=== PATIENT | male | born 1970 | race African-American/Black ===

== ENCOUNTER 2017-11-07 08:33 | Day surgery (SDC) | payer OTHER ==
[2017-10-02 12:02] VITALS: BMI 21.7
[2017-11-07] MEDS ORDERED: BENZOIN/ALOE VERA/STORAX/TOLU 58 ML BOTTLE ONE ×2 (11:00→15:02)
[2017-11-07] MEDS ORDERED: PROPOFOL 20 ML ONE ×2 (12:23→14:10)
[2017-11-07] MEDS ORDERED: ONDANSETRON 4 MG/2 ML VIAL ONE ×3 (12:24→15:50)
[2017-11-07] MEDS ORDERED: LIDOCAINE HCL/PF 2% SDV 5ML VIAL ONE ×2 (12:24→13:50)
[2017-11-07] MEDS ORDERED: DEXAMETHASONE SOD PHOSPHATE 4 MG/1 ML VIAL ONE ×2 (12:24→13:49)
[2017-11-07] MEDS ORDERED: SODIUM CHLORIDE 0.9% P/F 10 ML VIAL IJ ONE (12:24)
[2017-11-07] MEDS ORDERED: ceFAZolin SODIUM 1 GM VIAL ONE (12:24)
[2017-11-07] MEDS ORDERED: DEXAMETHASONE SOD PHOSPHATE/PF 10 MG/ML SDV ONE (12:46)
[2017-11-07] MEDS ORDERED: BUPIVACAINE HCL/PF (5 MG/ML) 30 ML VIAL IJ ONE (12:47)
[2017-11-07] MEDS ORDERED: MIDAZOLAM HCL 2 MG/2 ML SINGLE DOSE VIAL ONE ×2 (12:47→13:48)
[2017-11-07] MEDS ORDERED: oxyCODONE HCL 5 MG TABLET PO PRN ×2 (13:02)
[2017-11-07] MEDS ORDERED: ONDANSETRON 4 MG/2 ML VIAL IVPUSH PRN (13:02)
[2017-11-07] MEDS ORDERED: ACETAMINOPHEN 325 MG TABLET (FP) PO SCH (13:15)
[2017-11-07] MEDS ORDERED: LACTATED RINGERS SOLUTION 1,000 ML IV SCH (13:15)
[2017-11-07] MEDS ORDERED: ePHEDrine SULFATE 50 MG/1 ML AMPULE ONE ×2 (14:12→14:26)
[2017-11-07] MEDS ORDERED: KETOROLAC TROMETHAMINE 30 MG/1 ML VIAL ONE (14:22)
[2017-11-07] MEDS ORDERED: PHENYLEPHRINE HCL 10 MG/1 ML SINGLE DOSE VIAL ONE (14:33)
--- NOTE | 2017-11-07 15:19 | OP ---
Operative Note - Note: Operative Date: 11/07/17 Pre-Operative Diagnosis: Impingement R shoulder with rotator cuff tear Operation: Repair Rotator cuff with Neer decompression Findings: 1 cmm tear and tight impingement Surgeon: Geo Bella Mechanical Test Technician: Dusty Bella (Co Surgeon) Anesthesia: General Estimated Blood Loss (mls): 30 Operative Report Dictated: Yes
--- NOTE | 2017-11-07 15:32 | OP ---
Operative Note - Note: Operative Date: 11/07/17 Pre-Operative Diagnosis: 1. Right shoulder impingement syndrome. 2. Right rotator cuff tear Operation: Right shoulder open: 1. Neer decompression (acromioplasty, sub- acromial decompression, CA ligament release). 2. Asmita procedure (distal claviculectomy). 3. Rotator cuff repair Post-Operative Diagnosis: Same as Pre-op Surgeon: Geo Bella Air Grinder: Dusty Bella (Co-Surgeon) Anesthesiologist/CERTIFICATION AND SELECTION SPECIALIST: Nolan Altamirano Anesthesia: General, MAC (Interscalene block) Estimated Blood Loss (mls): 25 Operative Report Dictated: Yes
[2017-11-07] MEDS ORDERED: oxyCODONE HCL 5 MG TABLET ONE (17:00)
[2017-11-07 17:19] VITALS: TEMP 97.6
[2017-11-07 18:43] VITALS: BP 106/70; PULSE 86
--- NOTE | 2017-11-08 00:56 | OP ---
DATE OF OPERATION: 11/07/2017 SURGEON: Geo Bella M.D. CO-SURGEON: Dusty Bella M.D. PREOPERATIVE DIAGNOSIS: Right impingement syndrome with rotator cuff tear. POSTOPERATIVE DIAGNOSIS: Right impingement syndrome with rotator cuff tear. OPERATION PERFORMED: 1. Excision claviculectomy ([place]). 2. Transection acromioclavicular ligament. 3. Undercutting acromioplasty. 4. Repair of rotator cuff. ANESTHESIA: Scalene block with general anesthesia. ANTIBIOTICS GIVEN: 2 g Kefzol, 1 g vancomycin. OPERATING PERFORMED: 1. Lateral excision claviculectomy ([place]). 2. Transection of coracoacromial ligament. 3. Acromioplasty. 4. Repair of rotator cuff. ANESTHESIA: Scalene block with general conscious sedation. ANTIBIOTICS GIVEN: 2 g Kefzol, 1 g vancomycin. PROCEDURE: Patient correctly identified. Brought in operating room. Timeout was called. Imaging was available for intraoperative evaluation. Right shoulder was prepped in routine manner with Betadine scrub solution, wiped with alcohol, Duraprep applied, both the planes pressed under the inferior pole of the scapula to elevate the scapula appropriately. In the lines of Cali from the tip of the tip of the coracoid to the tip of the acromion an incision was made. The tissues were lifted and plane developed into subcutaneous fat to the posterior border of the clavicle just proximal to the AC joint. The deltoid was split at the level of the AC joint for about 3 cm. A Sue was placed under the anterior aspect of the clavicle, and an excision of the clavicle performed. This is 1 cm beveled inwards. The soft tissues were maintained for closure. At that point then the coracoacromial ligament was dissected out by the deltoid fibers. The AC ligament clearly identified, this was transected using a 15 blade and Metzenbaum scissors finished the decompression both cranially and caudally in relation to the AC ligament, freeing the ligament and the undersurface completely. A Baig elevator was placed on the undersurface of the acromion, depressing the humeral head off the acromion. It must be noted prior to this one could not even put a finger into the subacromial space, it was so tight. The acromion was then treated with an appropriate undercutting acromioplasty using a small oscillating saw and an osteotome resected out the remaining elements of bone. This opened up the space completely. The rotator cuff was then inspected. It must be noted the patient was placed with the head on the side on an arm board so that the shoulder could be extended fully and the entire rotator cuff explored with the shoulder in full extension and full flexion, with internal-external rotation one could visualize completely the entire confines of the appropriate rotator cuff. A suture was placed into the small area. There was a defect tear noted. The margins were excised with a 15 blade and to achieve vascularized soft tissue healing to vascularized soft tissue healing. Tight sealed suture achieved. The wounds were thoroughly lavaged. The shoulder joint was completely decompressed and movement was free. Closure deltoid to AC soft tissue approximated with 1 Vicryl, subcutaneous 3-0 Vicryl, skin 3-0 Monocryl with Steri-Strips. No complications. MD LEYLA Curry/[id number]
== END 2017-11-07 18:25 | disposition home or self-care (01) ==
LOC: FASU 08:33
PROVIDERS: ATTEND Orthopaedic Surgery Orthopaedic Surgery of the Spine
PROC: 0LB10ZZ Excision of Right Shoulder Tendon, Open Approach (ICD-10-PCS; 2017-11-07)
PROC: 0PB90ZZ Excision of Right Clavicle, Open Approach (ICD-10-PCS; principal; 2017-11-07 14:38)
DX: M75.41 Impingement syndrome of right shoulder (principal)
CPT/HCPCS: 94760